=== PATIENT | female | born 1985 | race Caucasian/White ===

== ENCOUNTER 2021-04-24 12:39 | Emergency (ER) | payer SELFPAY | END 2021-04-24 13:30 | disposition home or self-care (01) | LOC: ERS 12:39 | DX: S61.210A Laceration without foreign body of right index finger without damage to nail, initial encounter (principal); W23.0XXA Caught, crushed, jammed, or pinched between moving objects, initial encounter ==

== ENCOUNTER 2022-01-10 22:17 | Emergency (ER) | payer OTHER, SELFPAY ==
[2022-01-10 23:05] LABS: Bilirubin Negative (Negative); Blood, Urine 1+ (Negative); Clarity Turbid (Clear); Glucose, Urine (Dipstick) Normal (Negative); Ketone, Urine Negative (Negative); Leukocyte 500 Leu/uL (Negative); Nitrite Negative (Negative); Protein, Urine (Dipstick) 30 mg/dL (Neg-Trace); Renal Epithelial 0-3 HPF (None Seen); Squamous Epithelial 0-3 HPF (0-3); Urobilinogen Normal mg/dL (Less than 2); WBC/HPF Greater than 50 HPF (0-3)
[2022-01-10 23:12] LABS: Bacteria/HPF 3+ HPF (None Seen)
== END 2022-01-11 01:02 | disposition home or self-care (01) ==
LOC: ERS 22:17
DX: N39.0 Urinary tract infection, site not specified (principal)
CPT/HCPCS: 81003; 81015; 87086; 99283

== ENCOUNTER 2025-07-02 19:12 | Emergency (ER) | payer OTHER ==
[2025-07-02] MEDS ORDERED: Acetaminophen 500 MG TAB ONE (20:00)
[2025-07-02 20:28] LABS: CAUTI Indications for Culture Dysuria,urgency,freq; Glucose, Urine (Dipstick) Normal (Negative); Leukocyte 25 Leu/uL (Negative); Protein, Urine (Dipstick) 30 mg/dL (Neg-Trace); RBC/HPF None Seen HPF (0-3); Specific Gravity, Urine 1.033 (1.002-1.036); WBC/HPF 0-3 HPF (0-3)
[2025-07-02 20:29] LABS: Bacteria/HPF 1+ HPF (None Seen)
[2025-07-02 20:30] LABS: Urine Culture Reflex No No
== END 2025-07-02 20:49 | disposition home or self-care (01) ==
LOC: ERS 19:12
DX: J10.1 Influenza due to other identified influenza virus with other respiratory manifestations (principal); N39.0 Urinary tract infection, site not specified
CPT/HCPCS: 81001; 87081; 87428; 87430; 99283